=== PATIENT | male | born 1990 | race African-American/Black ===

== ENCOUNTER 2019-04-02 18:29 | Emergency (ER) | payer MEDICAID ==
[~2019-04-02] VITALS: Ht 172.7 cm; Wt 71.0 kg
[2019-04-02 20:17] VITALS: BP 117/74
== END 2019-04-02 20:17 | disposition home or self-care (01) ==
LOC: ER 18:29
DX: M54.5 Low back pain (principal); Z91.81 History of falling
CPT/HCPCS: 99283

== ENCOUNTER 2019-07-25 16:12 | Emergency (ER) | payer MEDICAID ==
[~2019-07-25] VITALS: Ht 175.3 cm; Wt 79.0 kg
[2019-07-25 16:47] VITALS: BP 128/87
== END 2019-07-25 18:09 | disposition left against medical advice (07) ==
LOC: ER 16:12
DX: S01.81XA Laceration without foreign body of other part of head, initial encounter (principal); W01.0XXA Fall on same level from slipping, tripping and stumbling without subsequent striking against object, initial encounter; Y93.9 Activity, unspecified; Y92.9 Unspecified place or not applicable
CPT/HCPCS: 99283

== ENCOUNTER 2019-10-21 07:07 | Emergency (ER) | payer MEDICAID ==
[~2019-10-21] VITALS: Ht 172.7 cm; Wt 73.0 kg
[2019-10-21 08:00] VITALS: BP 129/67
[2019-10-21] MEDS ORDERED: IBUPROFEN 600MG TABLET PO ONE (08:00)
== END 2019-10-21 10:02 | disposition home or self-care (01) ==
LOC: ER 07:07
DX: S63.502A Unspecified sprain of left wrist, initial encounter (principal); S63.602A Unspecified sprain of left thumb, initial encounter; F12.10 Cannabis abuse, uncomplicated; W01.0XXA Fall on same level from slipping, tripping and stumbling without subsequent striking against object, initial encounter; Y93.89 Activity, other specified; Y92.89 Other specified places as the place of occurrence of the external cause; Y99.8 Other external cause status; Z98.890 Other specified postprocedural states
CPT/HCPCS: 29125; 73110; 73130; 99283

== ENCOUNTER 2024-06-25 16:57 | Emergency (ER) | payer MEDICAID ==
[~2024-06-25] VITALS: Ht 172.7 cm; Wt 76.0 kg
[2024-06-25 17:45] VITALS: TEMP 98.7; O2SAT 99
[2024-06-25] MEDS ORDERED: CYCLOBENZAPRINE 10MG TABLET PO ONE (18:15)
[2024-06-25] MEDS ORDERED: KETOROLAC 30MG/ML VIAL IM ONE (18:15)
[2024-06-25 20:13] VITALS: BP 146/74; PULSE 93; RESP 20
[2024-06-25] MEDS: CYCLOBENZAPRINE 10MG TABLET PO NR (20:13)
[2024-06-25] MEDS: KETOROLAC 30MG/ML VIAL IM NR (20:13)
[2024-06-25] MEDS ORDERED: CYCL10TA21 MT (20:27)
[2024-06-25] MEDS ORDERED: NAPR-1176 MT (20:27)
== END 2024-06-25 21:31 | disposition home or self-care (01) ==
LOC: ER 16:57
DX: M54.50 Low back pain, unspecified (principal); F12.10 Cannabis abuse, uncomplicated
CPT/HCPCS: 99285; 72131; 96372; J1885

== ENCOUNTER 2025-01-29 00:17 | Emergency (ER) | payer MEDICAID ==
[~2025-01-29] VITALS: Ht 175.3 cm; Wt 66.0 kg
[~2025-01-29 00:17] MED LIST: CYCL10TA21 MT; NAPR-1176 MT
[2025-01-29 00:37] VITALS: O2SAT 98
[2025-01-29] MEDS: IBUPROFEN 600MG TABLET PO ONE (01:19)
[2025-01-29] MEDS ORDERED: NAPR-1176 MT (01:44)
[2025-01-29 02:50] VITALS: BP 117/73; PULSE 97; RESP 20; TEMP 36.7; O2SAT 99
[2025-01-29 02:51] VITALS: TEMP 98.1
[2025-01-29] MEDS: ACETAMINOPHEN 500MG TABLET PO ONE (02:51)
== END 2025-01-29 02:52 | disposition home or self-care (01) ==
LOC: ER 00:17
DX: S62.501A Fracture of unspecified phalanx of right thumb, initial encounter for closed fracture (principal); F12.10 Cannabis abuse, uncomplicated; W23.0XXA Caught, crushed, jammed, or pinched between moving objects, initial encounter; Y93.89 Activity, other specified; Y92.89 Other specified places as the place of occurrence of the external cause; Y99.8 Other external cause status
CPT/HCPCS: 73130; 11740; 99284; Z7610; 99283; A4606